=== PATIENT | male | born 1945 | race Caucasian/White ===

== ENCOUNTER 2016-12-02 01:00 | Inpatient (IN) | payer MEDICARE, OTHER ==
[~2016-12-02] VITALS: Ht 177.8 cm; Wt 90.9 kg
[2016-12-02] VITALS (9 sets, daily range): BP systolic 121–149; BP diastolic 68–89; PULSE 72–85; RESP 16–22; O2SAT 92–96
[2016-12-02] MEDS ORDERED: Alum-Mag Hydrox-Simeth 30 mL Suspension PO PRN (02:40)
[2016-12-02] MEDS ORDERED: Ondansetron 2 mg/mL 2 mL Inj IVPUSH PRN (02:40)
[2016-12-02] MEDS ORDERED: Senna-Docusate 8.6-50 mg Tablet PO PRN (02:40)
[2016-12-02] MEDS ORDERED: Polyethylene Glycol (PEG) 17 Gm Powder PO PRN (02:40)
[2016-12-02] MEDS ORDERED: ASPI325T32 PO (03:04)
[2016-12-02] MEDS ORDERED: MULT-1018 PO (03:06)
[2016-12-02] MEDS ORDERED: VITAMI (03:06)
[2016-12-02] MEDS: 0.9% Sodium Chloride 1,000 ML IV SCH ×2 (03:17→14:11)
[2016-12-02 03:41] LABS: BASOPHILS % (AUTO) 0.1 % (0-3); EOSINOPHILS % (AUTO) 0.2 % (0-5); MONOCYTES % (AUTO) 16.2 % (4-12); Mean Corpuscular Hemoglobin 32.2 pg (27.0-35.0); Mean Corpuscular Volume 89.5 fL (81-100); NEUTROPHILS % (AUTO) 74.3 % (40-74); Platelet Count 141 bil/L (150-400)
--- NOTE | 2016-12-02 03:41 | NUR ---
Admit note Pt admitted from [facility] ED for NM. Pt arrived via ambulance and ambulated self to hospital bed, gait steady. Pt A&O X3, pleasant and in no acute distress. Tele monitor placed, Tele SR 70s. Pt states that he only has chest pain 7/10 with deep inspirations or when lying down, but when he is sitting upright, he has no pain, declines pain medications at this time. IV NS infusing at 80mls /hour per MD orders. VS stable and afebrile. No c/o SOB, RA sats 96%, no acute signs or symptoms of respiratory distress. Pt desires to be a full code. Pt oriented to room, bed, TV, Telephone and call light system. Care ongoing.
[2016-12-02 04:08] LABS: Magnesium 1.9 mg/dL (1.6-2.6)
--- NOTE | 2016-12-02 04:36 | PCM.HPMED ---
Subjective Date of Service Dec 02, 2016 Primary Provider: Admitting Physician: Daylin Randall DO Primary Care Physician: Other,Physician Attending Physician: Daylin Randall DO Admit Status: Direct Admit Chief Complaint: Chest pain History of Present Illness: Patient is a 71 year old male with history of hypertension and hyperlipidemia who presented to [facility] with 3 days of pleuritic chest pain, and dizziness. He reports sharp central chest pain on deep inspiration. His dizziness has been significant and he reports an episode of syncope, after which he woke up 1-2 mins later and laid himself on the couch. He reports he was in his usual state of health before his symptoms began, other than recovering from a URI 2 weeks ago. He reports chills, nausea and vomiting yesterday, but denies diarrhea, visual changes, palpitations, focal weakness/ numbness, speech difficulties. He denies shortness of breath but states he "can' t take a deep breath" due to his pleuritic pain. At [facility], EKG showed ST elevation in leads II, III, avF. Troponin I was 16.71. WBC 12.2. BUN 21, Cr 1.1, glucose 118, bilirubin 1.1. LFTs and lipase were normal. Bedside chest US showed trace pericardial effusion. CXR showed borderline heart size with mild bibasilar atelectasis/infiltrate, and possible mild left pleural effusion. He was transferred to [facility] for further management. Review of Systems: Comprehensive review of systems conducted and was negative except for the pertinent positives listed above. Allergies Coded Allergies: No Known Allergies (Unverified , 12/02/16) Home Medications Pt unsure of total home meds, but recalls: Aspirin 325 mg daily Multivitamin PMH Hypertension Hyperlipidemia Prostate cancer Surgical History None Family History Brother - 3-4 NE No history of stroke, diabetes, cancer. Social History Hx Alcohol Use: No (occ wine 1-2 drinks per week) Hx Substance Use: No Hx Tobacco Use: No Smoking Status: Never Smoker Exam Vital Signs Vital Sign - Last Date Time Temp Pulse Resp B/P Pulse Ox O2 Delivery O2 Flow Rate FiO2 12/02/16 02:36 36.7 74 18 146/82 96 Room Air Exam General: Alert, Oriented X3, Cooperative, No Acute Distress, appears in pain when taking deep breath Head: Normocephalic, atraumatic. External ears normal. Eyes: PERRLA, EOMI. Anicteric sclerae. Mouth: Mouth Normal, Mucous Membranes Moist/[place] Neck: Neck supple with full range of motion. Chest & Lungs: Mild crackles at bases Cardiovascular: Regular Rate/Rhythm, Normal S1, Normal S2, No Murmurs/Rubs/ Gallops Abdomen: Non-tender, Non-distended, No masses, Normoactive bowel tones, Soft Musculoskeletal: Normal Range of Motion Extremities: No cyanosis/clubbing/edema bilaterally Neurological: Grossly Neurologically Intact, Normal Speech Lab and Diagnostics Result Diagram: 12/02/16 0325 Assessment & Plan Patient is a 71 year old male with history of hypertension and hyperlipidemia who presented to [facility] with 3 days of pleuritic chest pain, and dizziness. 1. Acute inferior NE. Present on admission. - EKG shows ST elevation in inferior leads. Symptoms started 2 days ago. Troponin I was 16.71. Pt is 2+ days out, so heparin gtt is not required. - Cardiology will see in AM. We appreciate their input. - Trend troponin - Aspirin 81 mg daily - Plavix 300 mg followed by 75 mg daily - Atorvastatin 80 mg daily - Metoprolol tartrate 25 mg BID - Echocardiogram ordered - Lipid panel ordered - Monitor on telemetry - hgbA1c pending - lipid panel pending 2. Acute alivia-infarct pericarditis. Present on admission. - Pt presents with pleuritic substernal chest pain on deep inspiration 2-3 days post-NE. US showed mild pericardial effusion. WBC mildly elevated at 12.2. - Aspirin 81 mg daily - Avoid other NSAIDs, which are associated with worse outcomes 7-10 days after NE. 3. Elevated bilirubin, acute. - Pt had bilirubin 1.1 at [facility]; mildly elevated. LFTs and lipase were normal. - Will reorder CMP - Order direct bilirubin if total bilirubin still abnormal. 4. Hyperlipidemia - Hold home simvastatin - Atorvastatin 80 mg daily 5. Other medical conditions - Prostate cancer Resuscitation Status: CPR: Attempt Resuscitation Attending Statement The patient was seen and examined together with house staff on 12/02/2016 and I agree with the history, exam and plan as outlined in the note above. Eros Vieira Dec 02, 2016 04:36 Daylin Randall DO Dec 02, 2016 05:08
[2016-12-02] MEDS ORDERED: [UNRECOGNIZED DRUG - REMARK] PO (06:27)
[2016-12-02 08:06] LABS: APPEARANCE,URINE CLEAR (CLEAR,HAZY); COLOR,URINE YELLOW (YELLOW); OCCULT BLOOD,URINE NEGATIVE (NEGATIVE); UROBILINOGEN,URINE NORMAL (NORMAL)
[2016-12-02] MEDS: Heparin 5,000 Unit/mL Inj SUBQ SCH ×2 (08:17→16:37)
[2016-12-02] MEDS: Sodium Chloride LOK Flush 10 mL Syringe IVFLUSH SCH ×2 (08:17→16:30)
--- NOTE | 2016-12-02 08:20 | PCM.PNMED ---
Subjective Date of Service Dec 02, 2016 Subjective A very mild pleuritic chest pain. Some dyspnea when lying flat. No leg edema. No anterior chest pain. No difficulty with nausea or diaphoresis. Exam Vital Signs Vital Sign - Last Date Time Temp Pulse Resp B/P Pulse Ox O2 Delivery O2 Flow Rate FiO2 12/02/16 08:07 37.0 85 16 144/80 96 Room Air Intake and Output 12/01/16 12/01/16 12/02/16 Cumulative From/Thru 15:00 23:00 07:00 12/02/16 02:37 - 12/02/16 05:29 Intake Total 0 ml 0 ml Output Total 0 ml 0 ml Balance 0 ml 0 ml Intake Oral 0 ml 0 ml Output Urine Total 0 ml 0 ml # Bowel Movements 0 0 Exam Alert oriented 3. Fluent speech. Flat affect Anicteric sclera Neck supple, normal JVP. Lungs are clear with normal effort Heart is regular without murmur. Abdomen soft Extremities edema good pedal and radial pulses IVs and Medications Medications Reviewed: Medications were reviewed in detail Lab and Diagnostics Result Diagram: 12/02/165 12/02/16 0325 Assessment & Plan Patient is a 71 year old male with history of hypertension and hyperlipidemia who presented to [facility] with 3 days of pleuritic chest pain, and dizziness. 1. Acute inferior [place]. Present on admission. The patient appears to have developed Q waves in inferior leads. By history he had a cardiac event several days ago with a high peak troponin. He shows no evidence of arrhythmia or cardiac dysfunction. At this point we will discontinue his K protector regimen and obtain a 2-D echo to assess his cardiac function. Cardiology will be consulted as well for their input and risk stratification. 2. Acute alivia-infarct pericarditis. Present on admission. - Pt presents with pleuritic substernal chest pain on deep inspiration 2-3 days post-WY. US showed mild pericardial effusion. WBC mildly elevated at 12.2. - Aspirin 81 mg daily - Avoid other NSAIDs, which are associated with worse outcomes 7-10 days after [place]. Will confer with cardiology as well regarding this issue. 3. Elevated bilirubin, acute. - Pt had bilirubin 1.1 at [facility]; mildly elevated. LFTs and lipase were normal. - Will reorder CMP - Order direct bilirubin if total bilirubin still abnormal. 4. Hyperlipidemia - Hold home simvastatin - Atorvastatin 80 mg daily 5. Other medical conditions - Prostate cancer Pain Evaluation: Adequate Pain Control Resuscitation Status: CPR: Attempt Resuscitation Time spent 25 minutes Willam Partida MD Dec 02, 2016 08:20
--- NOTE | 2016-12-02 12:11 | DRSVH ---
[facility] [address] [place] [address] Echocardiogram Report Name: ASHIA CORTES Study Date: 12/02/2016 Height: 70 in Hospital Exam Location: [facility] Weight: 202 lb Gender: Male BSA: 2.1 m2 : 1945 Age: 71 yrs BP: 146/82 mmHg Reason For Study: CHEST PAIN Ordering Physician: Performed By: Ga Griffith Interpretation Summary The left ventricle is normal in size. There is normal left ventricular wall thickness. The ejection fraction is estimated to be 50-55%. There is basal inferoseptal wall akinesis. There is inferior wall akinesis. There are no other obvious focal wall motion abnormalities. Assessment of diastolic parameters indicates a relaxation abnormality of the left ventricle, consistent with normal filling pressures. There is moderate aortic valve sclerosis. The IVC is of normal diameter and collapses greater than 50% with a sniff. This suggests a low right atrial pressure of 3 mm Hg. There is a trivial pericardial effusion noted. No other echocardiographic abnormalities seen. Procedure: A two-dimensional transthoracic echocardiogram with color flow and Doppler was performed. The study quality was technically adequate. There is no prior echocardiogram noted for this patient. The patient was in normal sinus rhythm during the exam. Left Ventricle: The left ventricle is normal in size. There is normal left ventricular wall thickness. The ejection fraction is estimated to be 50-55%. There is basal inferoseptal wall akinesis. There is inferior wall akinesis. There are no other obvious focal wall motion abnormalities. Assessment of diastolic parameters indicates a relaxation abnormality of the left ventricle, consistent with normal filling pressures. Right Ventricle: The right ventricle is normal size. The right ventricular systolic function is normal. Atria: Both atria are normal in size. The interatrial septum is intact with no evidence for an atrial septal defect. Mitral Valve: The mitral valve is normal in structure and function. There is no mitral regurgitation noted. Aortic Valve: The aortic valve is trileaflet. The aortic valve opens well. There is moderate aortic valve sclerosis. No aortic regurgitation is present. Tricuspid Valve: The tricuspid valve is normal in structure and function. There is a trace or physiologic amount of tricuspid regurgitation. Pulmonary artery pressures cannot be estimated because of the lack of a measurable TR jet velocity. Pulmonic Valve: The pulmonic valve is normal in structure and function. There is trace pulmonic regurgitation. Great Vessels: The aortic root is normal size. The ascending aorta is moderately enlarged. The pulmonary artery is normal size. The IVC is of normal diameter and collapses greater than 50% with a sniff. This suggests a low right atrial pressure of 3 mm Hg. Pericardium/ Pleura There is a trivial pericardial effusion noted. There is no pleural effusion. MMode/2D Measurements & Calculations LVIDd: 5.6 cm LA dimension: 3.3 cm RA long axis: 4.9 cm Ao root diam LVIDs: 4.0 cm FS: 27.9 % LA A2 area: 22.2 cm RA area: 19.9 cm Aortic Jxn EPSS: 0.53 cm LA A4 area: 20.4 cm RA vol: 69.2 ml IVSd: 0.99 cm LA length (vol): 6.2 cm RA : 33.0 ml/m2 asc Aorta LVPWd: 1.0 cm LA vol: 61.6 ml Diam: 4.4 cm LA vol index IVC diam: 2.1 cm EDV(MOD-sp2) LV watson. diameter/BSA LV sys. diameter/BSA RVD1 (basal) : 115.6 ml (cm/m^2): 2.7 (cm/m^2): 1.9 : 4.2 cm RVD2 (mid) : 3.6 cm Doppler Measurements & Calculations Ao V2 max MV E max wei MV E/A: 0.79 PA V2 max: 55.7 cm/sec : 127.7 cm/sec : 45.5 cm/sec Med Peak E' Wei PA mean P.68 mmHg Ao max PG MV A max wei PA Accel Time: 0.08 sec : 6.5 mmHg : 57.4 cm/sec E/E' med: 9.4 Ao mean PG Pulm A Revs Dur : 3.5 mmHg MV A dur: 0.12 sec MV dec time Ao V2 mean PA V2 mean Pulm A Revs Dur - MV A : 0.33 sec : 88.3 cm/sec : 38.9 cm/sec Dur: -0.01 msec Ao V2 VTI PA pr(Accel) : 23.0 cm : 34.1 mmHg Reading Physician:12:09 PM
--- NOTE | 2016-12-02 12:43 | PCM.CHPCAR ---
Consult Subjective Date of service Dec 02, 2016 Date of admit Dec 02, 2016 at 02:20 Provider Requesting Consult Primary Care Physician Primary Care Provider: Other,Physician Chief Complaint Chest pressure, inferior ID History of Present Illness This is a very pleasant 71-year-old gentleman with no prior history of coronary artery disease, who was transferred from [facility] to [facility] with inferior ID. The patient states that on , 11/29/2016 he had lunch with his , came home after that and 2 hours after this, around at 1 PM, he started feeling queasy in his stomach. He felt queasy the rest of the day, stating he did not have any other symptoms, no chest pain or chest pressure, no dyspnea, no diaphoresis, and no palpitations. He felt queasy the rest of the day but was able to go to sleep at night. On Saturday morning he got up and still felt queasy and felt a little lightheaded, and at 10 AM he vomited 4 times, he still did not have any chest pain or chest pressure, but felt a little clammy. After that he slept couple of hours propping his head a little up because it was more comfortable in this way. After he woke he just felt tired. The same day on Saturday at 8 pm he started experiencing chest discomfort/pressure which was slight in the middle of the chest, in substernal area 2/10 in intensity aggravated with deep breathing to 7/10 in intensity, not radiating anywhere, denied having any dyspnea, palpitation, or diaphoresis. He took one tablet of ibuprofen which did not help and he went to sleep stating that chest pressure was getting better with his head propped up, and getting worse with laying down flat. He was able to sleep and next day on Saturday morning he still had the same symptoms of slight substernal chest pressure aggravated with deep breathing ; denies having any other symptoms. The symptom lasted the whole day and in the evening chest pressure got more intense and he decided to go to [facility] ER. In [facility] ER he was found to be hemodynamically stable with blood pressure 130s 140s/70ss-80s, heart rate 72 bpm, normal saturation 97% on room air. His troponin I was remarkably elevated 16.71 with leukocytosis white blood cells 12.2. He was not anemic. On EKG showed ST elevation with Q waves in inferior leads. Chest X ray showed no acute pathoulogy except minimal left pleural effusion and mild basilar atelectasis. He was transferred to [facility] . The patient tells me that last night he still had same chest pressure symptoms aggravated with this breathing, but today in the morning after he was given Tylenol, symptoms improved drastically and currently he just periodically has a slight mid substernal chest pressure aggravated with deep breathing. The patient states that he never had similar symptoms before in his life. He has primary care provider at [facility] and last year from prophylactic standpoint of view he had treadmill nuclear stress test which reportedly was normal. He has been taking atorvastatin 10 mg for one year; he tells me that his total cholesterol was 174 and that is why he was advised to start atorvastatin. Per his own decision he has been taking aspirin 325 mg daily. Denies having history of hypertension, or DM. His outpatient medications include: Atorvastatin 10 mg daily, aspirin 325 mg daily, and vitamins. He is fairly active person; he swims 3 times a week 40 minutes and also does weight lifting regularly. He has remote history of tobacco smoking, quit 15 years ago and before that used to smoke 2 years half-pack a day. He drinks 2 glasses of wine a week. He has his strong family history of early coronary artery disease with his younger brother who had several heart attacks starting at the age 40s. He has history of prostate cancer which was removed 13 years ago, did not have any chemotherapy or radiation therapy and is considered cancer free.\ He also had appendectomy 33 years ago. Review of Systems Review of Systems Twelve points of review of systems are negative except the ones mentioned in history of present illness PMH Past Medical History Hyperlipidemia Past Surgical History He has history of prostate cancer which was removed 13 years ago, did not have any chemotherapy or radiation therapy and is considered cancer free.\ He also had appendectomy 33 years ago. Bedside Blood Glucose: 118 Scheduled ([Unknown Statin Drug]) 10 MG PO DAILY (Reported) Aspirin (Aspirin) 325 Mg Tablet 325 MG PO DAILY (Reported) Multivitamin (Multi Vitamin Daily) 1 Each Tablet 1 EACH PO DAILY (Reported) Miscellaneous Medications ([vitami]) (Reported) Current Inpatient Medications Current Medications Heparin Sodium (Porcine) 5,000 unit Q8 SUBQ Last administered on 12/02/16 08:17 ; Admin Dose 5,000 UNIT; Start 12/02/16 at 08:30 Sodium Chloride 10 ml 10 ml LAURIE IVFLUSH Last administered on 12/02/16 08:17; Admin Dose 10 ML; Start 12/02/16 at 08:30 Sodium Chloride 1,000 ml @ 80 mls/hr [id number] IV Last administered on 12/02/16 03:17; Admin Dose 80 MLS/HR; Start 12/02/16 at 02:39 Aspirin 81 mg DAILY PO Last administered on 12/02/16 08:16; Admin Dose 81 MG; Start 12/02/16 at 08:30 Al Hydrox/Mg Hydrox/Simethicone 30 ml Q6 PRN PO; Start 12/02/16 at 02:40 Ondansetron HCl 4-8 mg prn nausea Q4 PRN IVPUSH; Start 12/02/16 at 02:40 Senna 1 tablet BID PRN PO; Start 12/02/16 at 02:40 Polyethylene Glycol 17 gm DAILY PRN PO; Start 12/02/16 at 02:40 Acetaminophen 325 mg Q6 PRN PO Last administered on 12/02/16 05:55; Admin Dose 325 MG; Start 12/02/16 at 02:40 Nitroglycerin 0.4 mg Q5MIN PRN SL; Start 12/02/16 at 02:40 Morphine Sulfate 1-5 mg prn pain not relie... Q5M PRN IVPUSH; Start 12/02/16 at 02:40 Clopidogrel Bisulfate 75 mg DAILY PO Last administered on 12/02/16 08:16; Admin Dose 75 MG; Start 12/02/16 at 08:30 Atorvastatin Calcium 80 mg HS PO; Start 12/02/16 at 21:00 Metoprolol Tartrate 25 mg BID PO Last administered on 12/02/16 08:16; Admin Dose 25 MG; Start 12/02/16 at 08:30 Allergies: Coded Allergies: No Known Allergies (Unverified , 12/02/16) Social History Hx Alcohol Use: No (occ wine 1-2 drinks per week)Hx Substance Use: NoHx Tobacco Use: No Smoking Status: Never Smoker Exam Vital Signs Vital Sign - Last Date Time Temp Pulse Resp B/P Pulse Ox O2 Delivery O2 Flow Rate FiO2 12/02/16 09:13 72 12/02/16 08:07 37.0 16 144/80 96 Room Air Intake and Output 12/01/16 12/01/16 12/02/16 Cumulative From/Thru 15:00 23:00 07:00 12/02/16 02:37 - 12/02/16 05:29 Intake Total 0 ml 0 ml Output Total 0 ml 0 ml Balance 0 ml 0 ml Intake Oral 0 ml 0 ml Output Urine Total 0 ml 0 ml # Bowel Movements 0 0 Objective General: no ACD ENT: mucous membranes moist, eyes unicteric Neck: supple, no thyromegaly Pulmo: normal breathing sounds bilaterally, no crackles, no wheezing Cardio: RRR, normal S1&S2, no murmur appreciated Vascular: no carotid bruits, peripheral pulses are preserved Abdomen: nontender with palpation Extremities: no LE edema Neuro: A&O x3, no gross abnormalities. Lab and Diagnostics Result Diagram: 12/02/1632412/02/16324 12-lead ECG on EKG from 12/02/2016 ST elevations with Q waves in leads II, III and aVF, with prominent R waves in V1 and V2; heart rate 71 bpm; on telemetry sinus rhythm in 70s, no dysrhythmia. Assessment & Plan Assessment This is a 71-year-old gentleman with hx of Hyperlipidemia who has been on statins, positive family hx of early CAD and no prior history of coronary artery disease, who on 12/01/2016 was seen at from [facility] because of pleuritic chest pressure and found to have markedly elevated Trop I in the setting of competed inferoposterior ID and transformed to [facility] for further treatment. Inferoposterior ID completed - on EKG from 12/02/2016 ST elevations with Q waves in leads II, III and aVF, with prominent R waves in V1 and V2; heart rate 71 bpm; on telemetry sinus rhythm in 70s, no dysrhythmia. Currently the patient experiencing periodic slight chest discomfort aggravated with deep breathing, stating that he is feeling better. He does not have active chest pain. He is hemodynamically stable, troponin is trending down. Echo from today showed: LV EF 50-55%, basal inferoseptal and inferior wall akinesis, no other obvious focal wall motion abnormalities, moderate aortic valve sclerosis, low right atrial pressure of 3 mm Hg, trivial pericardial effusion, no significant valvular abnormalities He likely had the acute inferoposterior ID recently, likely on (2016) when his atypical symptoms started; later he started experiencing pleuritic chest pain which currently improved and likely represent post ID pericardial inflammation. # Because his ID is completed, at this point would not recommend cardiac catheterization. # Would recommend medical treatment. # Continue atorvastatin 80 mg daily, metoprolol tartrate 25 mg twice a day, Clopidogrel 75 mg daily; # Recommend to increase the dose of aspirin to 325 mg daily which will be helpful for his post-ID pericarditis. # After discharge would recommend to do treadmill nuclear stress test in 10 days and follow-up with cardiology clinic the same day if it is possible because the patient lives at [facility]. He can follow up either with Motion Picture Scene Builder Dr. Melton or with me if Dr. Melton is not available. The patient was see and examined by glue drier operator Dr. Melton who agreed with assessment Pain Evaluation: Adequate Pain Control Resuscitation Status: CPR: Attempt Resuscitation Attending Statement Patient was seen and examined with Fracisco. Her note accurately reflects the patients history and physical and the impression and plans were formulated with her and the patient and spouse. Fracisco Smith PA-C Dec 02, 2016 12:23 Uziel Melton MD Dec 02, 2016 13:02 catheterization. # Would recommend medical treatment. # Continue atorvastatin 80 mg daily, metoprolol tartrate 25 mg twice a day, Clopidogrel 75 mg daily; # Recommend to increase the dose of aspirin to 325 mg daily which will be helpful for his post-ID pericarditis. # After discharge would recommend to do treadmill nuclear stress test in 10 days and follow-up with cardiology clinic the same day if it is possible because the patient lives at [facility]. He can follow up either with [employer] Picture [employer] Dr. Melton or with me if Dr. Melton is not available. The patient was see and examined by glue drier operator Dr. Melton who agreed with assessment Pain Evaluation: Adequate Pain Control Resuscitation Status: CPR: Attempt Resuscitation Fracisco Smith PA-C Dec 02, 2016 12:23
--- NOTE | 2016-12-02 14:36 | NUR ---
[place] Episode Pt had an episode of bradycardia today with HR being in the 30's. Pt denies lightheadedness, dizziness, SOB, or any knowledge of the event occurring. Notified MD, checked patients vitals, his BP was normal and his pulse 80. Pt has been started on Lopressor.
--- NOTE | 2016-12-02 14:38 | NUR ---
Social Work: Assessment D&A: See initial assessment. Per EMR, pt is at [facility] with an HI. Pt primary insurance is listed as Medicare with a [employer] supp.; PCP is not listed. Pt readmit score has not yet been assessed. WARP PLACER met with pt at bedside and explained WARP PLACER role. Pt reports that he lives in a spit-level home with is ; there are 8 internal and 0 external steps. Pt drives and is "[place]. He does not use any DME to ambulate and does not utilize any community resources. Pt does not endorse any hx of H.H. or SNF admission. Pt reports that his , Mickie ([phone]; [phone]), will provide transportation at d/c. No SW needs apparent. P: Pt likely to d/c home with via POV. WARP PLACER will follow for d/c planning and any additional needs. DESTINY Preston Addendum: 12/02/16 at 1442 by DENISE LARSEN Amended: Links added.
--- NOTE | 2016-12-02 18:00 | NUR ---
Episode of trixie Pt had another episode of bradycardia, rate 34 duration 30 seconds., aware, Dr. Partida wants patient's beta gerardo held at 8pm tonight and watch patient's rhythm tonight.
--- NOTE | 2016-12-02 22:22 | NUR ---
Transfer: Pt arrived to room 3012 around 2129 from [facility], no family at bedside. Pt AOx3, denies pain, chest pain and SOB. Pleasant and cooperative with care.
[2016-12-03] VITALS (8 sets, daily range): BP systolic 115–139; BP diastolic 70–82; PULSE 67–84; RESP 18–20; O2SAT 94–96
[2016-12-03] MEDS: Sodium Chloride LOK Flush 10 mL Syringe IVFLUSH SCH ×3 (00:30→16:18)
[2016-12-03] MEDS: Heparin 5,000 Unit/mL Inj SUBQ SCH ×3 (00:51→16:17)
[2016-12-03] MEDS: 0.9% Sodium Chloride 1,000 ML IV SCH ×2 (03:53→16:15)
--- NOTE | 2016-12-03 06:35 | NUR ---
Uneventful Night: Pt had an uneventful night, no c/o pain, chest pain or SOB. Pt slept most of the night, up walking in hallway this morning. Pleasant and cooperative with care.
[2016-12-03] MEDS ORDERED: ATOR10TA66 PO (08:28)
--- NOTE | 2016-12-03 09:34 | PCM.PNCARD ---
Subjective Date of service Dec 03, 2016 Chief Complaint Pleuritic chest pain/Nausea Constitutional: Denies: Fever ENT: Denies: Ear Discharge Eyes: Denies: Blurred Vision Cardiovascular: Denies: Chest Pain, Irregular Heart Rate, Palpitations, SOB on Exertion Respiratory: Denies: Cough, SOB with Exertion, Shortness of Breath Gastrointestinal: Denies: Abdominal Pain, Black tarry stools, Blood in stool ( red) Neurological: Denies: Confusion Endocrine: Reports: Blood Glucose Review Exam Vital Signs Vital Sign - Last Date Time Temp Pulse Resp B/P Pulse Ox O2 Delivery O2 Flow Rate FiO2 12/03/16 03:58 37.1 67 20 128/72 94 Room Air Intake and Output 12/02/16 12/02/16 12/03/16 Cumulative From/Thru 15:00 23:00 07:00 12/02/16 02:37 - 12/03/16 06:56 Intake Total 2408 ml 1075 ml 3483 ml Output Total 585 ml 675 ml 1260 ml Balance 1823 ml 400 ml 2223 ml Intake Oral 1400 ml 100 ml 1500 ml IV Total 1008 ml 975 ml 1983 ml Output Urine Total 585 ml 675 ml 1260 ml # Voids 1 1 # Bowel Movements 1 0 1 General: Pleasant Cooperative Skin: Warm & dry to touch Head: Normocephalic Eye: EOMS intact Neck: No JVD Chest: Clear auscultation w/o rales/wheeze Cardiac: No murmurs, gallops or rubs Regular rhythm Abdomen: Soft, non-distended, non-tender Extremities: Warm w/o deformities,erythema noted Neurological: Alert & oriented Lab and Diagnostics Labs CBC Test 12/02/16 03:25 White Blood Count 12.2th/mm3 (3.8-10.1) Red Blood Count 4.57mil/mm3 (4.40-5.80) Hemoglobin 14.7g/dL (13.8-17.2) Hematocrit 40.9% (41.0-50.0) Mean Corpuscular Volume 89.5fL (81-100) Mean Corpuscular Hemoglobin 32.2pg (27.0-35.0) Mean Corpuscular Hemoglobin Concent 35.9% (32.0-37.0) Red Cell Distribution Width 12.7% (12.3-15.4) Platelet Count 141bil/L (150-400) Neutrophils (%) (Auto) 74.3% (40-74) Lymphocytes (%) (Auto) 9.0% (14-46) Monocytes (%) (Auto) 16.2% (4-12) Eosinophils (%) (Auto) 0.2% (0-5) Basophils (%) (Auto) 0.1% (0-3) CMP Test 12/02/16 03:25 12/02/16 20:55 Sodium Level 141mEq/L Potassium Level 4.0mEq/L Chloride Level 101mEq/L Carbon Dioxide Level 25mmol/L Blood Urea Nitrogen 16mg/dL Creatinine 0.94mg/dL Estimat Glomerular Filtration Rate 84mL/min Glucose Level 118mg/dL Calcium Level 9.1mg/dL Magnesium Level 1.9mg/dL Total Bilirubin 1.0mg/dL Aspartate Amino Transf (AST/SGOT) 83U/L Alanine Aminotransferase (ALT/SGPT) 40U/L Alkaline Phosphatase 70U/L Total Protein 6.7g/dL Albumin 3.6g/dL Triglycerides Level 51mg/dL Cholesterol Level 123mg/dL LDL Cholesterol, Calculated 63.800mg/dL VLDL Cholesterol 10.200mg/dL HDL Cholesterol 49mg/dL Cholesterol/HDL Ratio 2.51 Thyroid Stimulating Hormone (TSH) 1.760uIU/mL Hold Trejo Top Tube Received Troponin T 1.93ug/L Result Diagram: 12/02/1632412/02/16324 Additional Diagnostics: Echocardiogram Report Name: ASHIA CORTES Study Date: 12/02/2016 Height: 70 in Hospital Exam Location: [facility] Weight: 202 lb Gender: Male BSA: 2.1 m2 : 1945 Age: 71 yrs BP: 146/82 mmHg Reason For Study: CHEST PAIN Ordering Physician: Performed By: Ga Griffith Interpretation Summary The left ventricle is normal in size. There is normal left ventricular wall thickness. The ejection fraction is estimated to be 50-55%. There is basal inferoseptal wall akinesis. There is inferior wall akinesis. There are no other obvious focal wall motion abnormalities. Assessment of diastolic parameters indicates a relaxation abnormality of the left ventricle, consistent with normal filling pressures. There is moderate aortic valve sclerosis. The IVC is of normal diameter and collapses greater than 50% with a sniff. This suggests a low right atrial pressure of 3 mm Hg. There is a trivial pericardial effusion noted. No other echocardiographic abnormalities seen. Assessment & Plan Problems: (1) Transmural acute inferior myocardial infarction, initial hospitalization Plan: Patient has essentially completed his inferior myocardial infarct. He has Q waves inferiorly and has no residual ischemic symptoms. Recommendations were made about how to proceed with managing this. Patient had a recent myocardial perfusion study a few years back and that showed no ischemia. We suspect that he had most likely a small plaque with rupture with thrombus which created a complete closure of his RCA. His chest pain after his initial symptoms is most likely pericarditis after PA. Increasing his Aspirin has helped and he no longer has chest pain. He denies any N/V as well. If patient continues to stay stable then I would recommend discharged tomorrow am and our office will schedule an outpatient treadmill sestamibi to see if coronary angiogram is indicated. Patient has had his atorvastatin increased, and has been started on metoprolol and Plavix for additional risk factor modification. I have taken the liberty of increasing his metoprolol tartrate to 50 mg BID. I reviewed his telemetry and he has not PVCs or ventricular tachycardia. Occasionally he has non-conducted PACs. Discharge medications if tolerated: Metoprolol tartrate 50 mg BID Plavix 75 mg once a day ASA 325 mg once a day. Atorvastatin 80 mg po qhs Please give 2 month supply w/o refills. Status: Resolved ICD Code: I21.19 (2) Mixed hyperlipidemia Plan: Atorvastatin has increased to 80 mg po qhs for more aggressive secondary prevention. Status: Chronic ICD Code: E78.2 Pain Evaluation: Adequate Pain Control Resuscitation Status: CPR: Attempt Resuscitation Time spent 30 minutes copies to: Uziel Melton MD, Oscar J MD Dec 03, 2016 09:34
--- NOTE | 2016-12-03 15:12 | PCM.PNMED ---
Subjective Date of Service Dec 03, 2016 Subjective pt denied chest pain, not pleuritic Exam Vital Signs Vital Sign - Last Date Time Temp Pulse Resp B/P Pulse Ox O2 Delivery O2 Flow Rate FiO2 12/03/16 15:03 37.1 78 20 135/75 94 Room Air Intake and Output 12/02/16 12/02/16 12/03/16 Cumulative From/Thru 15:00 23:00 07:00 12/02/16 02:37 - 12/03/16 06:56 Intake Total 2408 ml 1075 ml 3483 ml Output Total 585 ml 675 ml 1260 ml Balance 1823 ml 400 ml 2223 ml Intake Oral 1400 ml 100 ml 1500 ml IV Total 1008 ml 975 ml 1983 ml Output Urine Total 585 ml 675 ml 1260 ml # Voids 1 1 # Bowel Movements 1 0 1 Exam NAD, MMM, no LAD RRR, NL S1S2 NO rubs CTAB no w,c S,ND,NT,BS+ warm, no edema IVs and Medications Medications Reviewed: Medications were reviewed in detail Lab and Diagnostics Result Diagram: 12/02/16 0325 12/02/16 0325 Cardiac Echo Impressions TTE 12/02 Interpretation Summary The left ventricle is norm al in size. There is normal left ventricular wall thickness. The ejection fraction is estimated to be 50-55%. There is basal inferoseptal wall akinesis. There is inferior wall akinesis. There are no other obvious focal wall motion abnormalities. Assessment of diastolic parameters indicates a relaxation abnormality of the left ventricle, consistent with normal filling pressures. There is moderate aortic valve sclerosis. The IVC is of normal diameter and collapses greater than 50% with a sniff. This suggests a low right atrial pressure of 3 mm Hg. There is a trivial pericardial effusion noted. No other echocardiographic abnormalities seen. Assessment & Plan Patient is a 71 year old male with history of hypertension and hyperlipidemia who presented to [facility] with 3 days of pleuritic chest pain, and dizziness. 1. Acute inferior SD. Present on admission. s/p STEMI, subacute onset -medical management per cardiology, Metoprolol tartrate 50 mg BID Plavix 75 mg once a day ASA 325 mg once a day. Atorvastatin 80 mg po qhs then stress test in outpt, then possible PCI later. 2. Acute alivia-infarct pericarditis. Present on admission. - Pt presents with pleuritic substernal chest pain on deep inspiration 2-3 days post-SD. US showed mild pericardial effusion. WBC mildly elevated at 12.2. - Aspirin 81 mg daily to 324 per card - Avoid other NSAIDs, which are associated with worse outcomes 7-10 days after SD. Will confer with cardiology as well regarding this issue. 3. Elevated bilirubin, acute. - Pt had bilirubin 1.1 at [facility]; mildly elevated. LFTs and lipase were normal. - Will reorder CMP - Order direct bilirubin if total bilirubin still abnormal. 4. Hyperlipidemia - Hold home simvastatin - Atorvastatin 80 mg daily 5. Other medical conditions - Prostate cancer dispo: tomorrow AM, home Resuscitation Status: CPR: Attempt Resuscitation Time spent 35min Paxton Santos MD Dec 03, 2016 15:12
--- NOTE | 2016-12-03 18:03 | NUR ---
Uneventful shift Pt A/Ox3. pleasant and cooperative, no complains of chest discomfrt/pressure, SOB, N/V or dizziness. Pt ambulated in the poon with spouse, rested quietly through out the day. Pt is hoping to be discharged soon. Call light with in reach, will continue to monitor
[2016-12-04] MEDS: Sodium Chloride LOK Flush 10 mL Syringe IVFLUSH SCH (00:30)
[2016-12-04] MEDS: Heparin 5,000 Unit/mL Inj SUBQ SCH (00:36)
[2016-12-04 01:36] VITALS: BP 128/81; PULSE 70; RESP 18; O2SAT 93
[2016-12-04] MEDS: 0.9% Sodium Chloride 1,000 ML IV SCH (04:46)
[2016-12-04 05:46] VITALS: BP 122/75; PULSE 67; RESP 18; O2SAT 95
[2016-12-04] MEDS ORDERED: ATOR40TA69 PO (07:18)
[2016-12-04] MEDS ORDERED: CLOP75TA28 PO (07:18)
[2016-12-04] MEDS ORDERED: ASPI325T32 PO (07:18)
[2016-12-04] MEDS ORDERED: METO50TA3 PO (07:18)
[2016-12-04] MEDS ORDERED: NITR0.4T SL (07:18)
--- NOTE | 2016-12-04 07:22 | PCM.DIMED ---
Discharge Instructions Date of Service Dec 04, 2016 Dates of Hospitalization Dec 02, 2016 at 02:20 Discharge Diagnosis Discharge Diagnosis Inferior wall DC Post-DC pericarditis Medication Instructions Please take aspirin and Plavix and metoprolol and increased dose of atorvastatin every day Please take nitroglycerin pill under your tongue as needed every 5 minutes for chest pain Diet Low fat, Low Sodium, Heart Healthy Call your provider Chest pain Patient Instructions You were hospitalized with chest pain, found to have heart attack and inflammation of your pericardium, sac surrounding your heart. Please follow medicine instruction as above Please continue healthy diet with enough vegetables and fruits, low sodium and fat, carbohydrate Follow-up plan Please follow up with Cardiology in one week Follow-up Provider: Abisai Campos MD Follow-up with PCP in: 1 week Paxton Santos MD Dec 04, 2016 07:22
--- NOTE | 2016-12-04 10:37 | NUR ---
Discharge IV discontinued fully intact. Tele removed and cytology technologist notified. All personal belongings given to patient. Discharge instructions given to patient and who both verbalize understanding and agree to plan of care. Patient ambulated off of unit with [employer] and to personal car.
--- NOTE | 2016-12-04 12:00 | NUR ---
Social Work-discharge: Data:EMR reviewed. Pt is on day 2 of hospitalization for MN per H&P. pt is medically stable to discharge home today. Pt resides at home with his and is independent at baseline. Pt has been up independent in his room. No discharge needs identified. All updated and agreeable to plan. Assessment:Pt who is independent at baseline. Plan:Pt to discharge home today via POV. No discharge needs identified. All updated and agreeable to plan. DESTINY Strauss
--- NOTE | 2016-12-05 12:20 | PCM.DC.MED ---
Discharge Summary Date of Service Dec 04, 2016 Dates of Hospitalization Date of Hospital Admission Dec 02, 2016 at 02:20 Date of Discharge: Dec 04, 2016 Providers: Admitting Physician: Daylin Randall DO Primary Care Physician: Other,Physician Attending Physician: Daylin Randall DO Diagnosis at Time of Discharge Diagnosis at Time of Discharge 1subacute inferior wall VT. 2Acute alivia-infarct pericarditis. 3Hyperlipidemia, 4hx of Prostate cancer Consultations Cardiology Procedures Cardiac Echo Impression TTE 12/02 Interpretation Summary The left ventricle is norm al in size. There is normal left ventricular wall thickness. The ejection fraction is estimated to be 50-55%. There is basal inferoseptal wall akinesis. There is inferior wall akinesis. There are no other obvious focal wall motion abnormalities. Assessment of diastolic parameters indicates a relaxation abnormality of the left ventricle, consistent with normal filling pressures. There is moderate aortic valve sclerosis. The IVC is of normal diameter and collapses greater than 50% with a sniff. This suggests a low right atrial pressure of 3 mm Hg. There is a trivial pericardial effusion noted. No other echocardiographic abnormalities seen. Brief History H&P performed by on 12/02 This is a very pleasant 71-year-old gentleman with no prior history of coronary artery disease, who was transferred from [facility] to [facility] with inferior VT. The patient states that on , 11/29/2016 he had lunch with his , came home after that and 2 hours after this, around at 1 PM, he started feeling queasy in his stomach. He felt queasy the rest of the day, stating he did not have any other symptoms, no chest pain or chest pressure, no dyspnea, no diaphoresis, and no palpitations. He felt queasy the rest of the day but was able to go to sleep at night. On Saturday morning he got up and still felt queasy and felt a little lightheaded, and at 10 AM he vomited 4 times, he still did not have any chest pain or chest pressure, but felt a little clammy. After that he slept couple of hours propping his head a little up because it was more comfortable in this way. After he woke he just felt tired. The same day on Saturday at 8 pm he started experiencing chest discomfort/pressure which was slight in the middle of the chest, in substernal area 2/10 in intensity aggravated with deep breathing to 7/10 in intensity, not radiating anywhere, denied having any dyspnea, palpitation, or diaphoresis. He took one tablet of ibuprofen which did not help and he went to sleep stating that chest pressure was getting better with his head propped up, and getting worse with laying down flat. He was able to sleep and next day on Saturday morning he still had the same symptoms of slight substernal chest pressure aggravated with deep breathing ; denies having any other symptoms. The symptom lasted the whole day and in the evening chest pressure got more intense and he decided to go to [facility] ER. In [facility] ER he was found to be hemodynamically stable with blood pressure 130s 140s/70ss-80s, heart rate 72 bpm, normal saturation 97% on room air. His troponin I was remarkably elevated 16.71 with leukocytosis white blood cells 12.2. He was not anemic. On EKG showed ST elevation with Q waves in inferior leads. Chest X ray showed no acute pathoulogy except minimal left pleural effusion and mild basilar atelectasis. He was transferred to [facility] . The patient tells me that last night he still had same chest pressure symptoms aggravated with this breathing, but today in the morning after he was given Tylenol, symptoms improved drastically and currently he just periodically has a slight mid substernal chest pressure aggravated with deep breathing. The patient states that he never had similar symptoms before in his life. He has primary care provider at [facility] and last year from prophylactic standpoint of view he had treadmill nuclear stress test which reportedly was normal. He has been taking atorvastatin 10 mg for one year; he tells me that his total cholesterol was 174 and that is why he was advised to start atorvastatin. Per his own decision he has been taking aspirin 325 mg daily. Denies having history of hypertension, or DM. His outpatient medications include: Atorvastatin 10 mg daily, aspirin 325 mg daily, and vitamins. He is fairly active person; he swims 3 times a week 40 minutes and also does weight lifting regularly. He has remote history of tobacco smoking, quit 15 years ago and before that used to smoke 2 years half-pack a day. He drinks 2 glasses of wine a week. He has his strong family history of early coronary artery disease with his younger brother who had several heart attacks starting at the age 40s. He has history of prostate cancer which was removed 13 years ago, did not have any chemotherapy or radiation therapy and is considered cancer free.\ He also had appendectomy 33 years ago. Hospital Course Patient is a 71 year old male with history of hypertension and hyperlipidemia who presented to [facility] with 3 days of pleuritic chest pain, and dizziness. 1subacute inferior VT. Present on admission. pt was noted to have Qwavs on inferior leads, II,III,aVF, it was likely pt had the acute inferoposterior VT recently, likely on (11/29/2016) when his atypical symptoms started; later he started experiencing pleuritic chest pain which currently improved and likely represent post VT pericardial inflammation.M mdical management per cardiology recommended, pt was started on Metoprolol tartrate 50 mg BID, Plavix 75 mg once a day, ASA 325 mg once a day., Atorvastatin 80 mg po qhs. Pruritic chest pain resolved with medicine. Plan is to follow up with Cardiology in 1- 2wks then stress test in outpt, then possible PCI later based on stress test. 2Acute alivia-infarct pericarditis. Present on admission. Pt presents with pleuritic substernal chest pain on deep inspiration 2-3 days post-VT. US showed mild pericardial effusion. WBC mildly elevated at 12.2, Aspirin 81 mg daily increased to 324 per card. 3Hyperlipidemia, statin increased to [id number] 4hx of Prostate cancer Exam Vital Signs (Last) Date Time Temp Pulse Resp B/P Pulse Ox O2 Delivery O2 Flow Rate FiO2 12/04/16 05:46 36.8 67 18 122/75 95 Room Air Exam NAD, comfortably laying down on the bed no JVD, MMM, no LAD RRR, nl s1, s2 no mrg CTAB, no w,c S,ND,NT,normoactive BS+ warm, no edema, pulses 2/2 Test 12/02/16 03:25 12/02/16 05:50 12/02/16 20:55 White Blood Count 12.2th/mm3 (3.8-10.1) Red Blood Count 4.57mil/mm3 (4.40-5.80) Hemoglobin 14.7g/dL (13.8-17.2) Hematocrit 40.9% (41.0-50.0) Mean Corpuscular Volume 89.5fL (81-100) Mean Corpuscular Hemoglobin 32.2pg (27.0-35.0) Mean Corpuscular Hemoglobin Concent 35.9% (32.0-37.0) Red Cell Distribution Width 12.7% (12.3-15.4) Platelet Count 141bil/L (150-400) Neutrophils (%) (Auto) 74.3% (40-74) Lymphocytes (%) (Auto) 9.0% (14-46) Monocytes (%) (Auto) 16.2% (4-12) Eosinophils (%) (Auto) 0.2% (0-5) Basophils (%) (Auto) 0.1% (0-3) Sodium Level 141mEq/L (134-144) Potassium Level 4.0mEq/L (3.5-5.2) Chloride Level 101mEq/L (97-108) Carbon Dioxide Level 25mmol/L (18-29) Blood Urea Nitrogen 16mg/dL (8-27) Creatinine 0.94mg/dL (0.76-1.27) Estimat Glomerular Filtration Rate 84mL/min (>59) Glucose Level 118mg/dL (60-99) Hemoglobin A1c 5.7% (4.8-5.6) Calcium Level 9.1mg/dL (8.5-10.1) Magnesium Level 1.9mg/dL (1.6-2.6) Total Bilirubin 1.0mg/dL (0.0-1.2) Aspartate Amino Transf (AST/SGOT) 83U/L (0-50) Alanine Aminotransferase (ALT/SGPT) 40U/L (0-44) Alkaline Phosphatase 70U/L (25-160) Total Protein 6.7g/dL (6.4-8.4) Albumin 3.6g/dL (3.4-5.0) Triglycerides Level 51mg/dL (0-149) Cholesterol Level 123mg/dL (100-199) LDL Cholesterol, Calculated 63.800mg/dL (0-99) VLDL Cholesterol 10.200mg/dL HDL Cholesterol 49mg/dL (>39) Cholesterol/HDL Ratio 2.51 (0.0-4.4) Thyroid Stimulating Hormone (TSH) 1.760uIU/mL (0.450-4.500) Hold Trejo Top Tube Received (Received) Urine Color Yellow (YELLOW) Urine Appearance Clear (CLEAR,HAZY) Urine pH 6.0 (5.0-8.0) Urine Specific [place] 1.022 (1.003-1.035) Urine Protein Negativemg/dL (NEG,TRACE) Urine Glucose (UA) Negativemg/dL (NEGATIVE) Urine Ketones 15mg/dL (NEGATIVE) Urine Occult Blood Negative (NEGATIVE) Urine Nitrite Negative (NEGATIVE) Urine Bilirubin Negative (NEGATIVE) Urine Urobilinogen Normalmg/dL (NORMAL) Urine Leukocyte Esterase Negative (NEGATIVE) Urine RBC 0-2/hpf (0-2) Urine WBC 0-5/hpf (0-5) Urine Epithelial Cells Few/hpf (NONE-MOD) Urine Crystals None seen (NONE SEEN) Urine Bacteria None/hpf (NONE-FEW) Urine Hyaline Casts None/lpf (NONE) Urine Granular Casts None seen (NONE SEEN) Urine Waxy Casts None seen (NONE SEEN) Urine Red Blood Cell Casts None seen (NONE SEEN) Urine White Blood Cell Casts None seen (NONE SEEN) Urine Mucus None seen (None Seen) Urine Trichomonas None seen (NONE SEEN) Urine Yeast None (NONE SEEN) Urinalysis Comment None Urine Culture Reflexed Not indicated Troponin T 1.93ug/L (0.0-0.011) Discharge Medications Discharge Medications Aspirin (Aspirin) 325 Mg Tablet 325 MG PO DAILY Prescribed by: PAXTON BEAN MD Atorvastatin Calcium (Atorvastatin Calcium) 40 Mg Tablet 80 MG PO HS Prescribed by: PAXTON BEAN MD Clopidogrel (Clopidogrel) 75 Mg Tablet 75 MG PO DAILY Prescribed by: PAXTON BEAN MD Metoprolol Tartrate (Metoprolol Tartrate) 50 Mg Tablet 50 MG PO BID Prescribed by: PAXTON BEAN MD Multivitamin (Multi Vitamin Daily) 1 Each Tablet 1 EACH PO DAILY (Reported) As needed Nitroglycerin SL (Nitrostat) 0.4 Mg Tab.subl 0.4 MG SL Q5MIN PRN PRN For Chest Pain Prescribed by: PAXTON BEAN MD Additional med instructions Please take aspirin and Plavix and metoprolol and increased dose of atorvastatin every day Please take nitroglycerin pill under your tongue as needed every 5 minutes for chest pain Followup Plan Disposition: home Follow-up plan Please follow up with Cardiology in one week Discharge Diet: Low fat, Low Sodium, Heart Healthy Patient Instructions You were hospitalized with chest pain, found to have heart attack and inflammation of your pericardium, sac surrounding your heart. Please follow medicine instruction as above Please continue healthy diet with enough vegetables and fruits, low sodium and fat, carbohydrate Follow-up Provider: Abisai Campos MD Follow-up with PCP in: 1 week Time spent 65min Paxton Bean MD Dec 05, 2016 12:20
== END 2016-12-04 10:37 | disposition home or self-care (01) | DRG 282 ==
LOC: PCC 02:20 → MPC 21:19
PROVIDERS: ADMIT Internal Medicine; ATTEND Internal Medicine
DX: I24.1 Dressler's syndrome (principal); I21.19 ST elevation (STEMI) myocardial infarction involving other coronary artery of inferior wall; I10 Essential (primary) hypertension; E78.5 Hyperlipidemia, unspecified; Z87.891 Personal history of nicotine dependence; Z82.49 Family history of ischemic heart disease and other diseases of the circulatory system; Z85.46 Personal history of malignant neoplasm of prostate; Z79.82 Long term (current) use of aspirin